=== PATIENT | female | born 1950 | race Caucasian/White ===

== ENCOUNTER → 2016-11-07 17:07 | Outpatient (CLI) | payer MEDICARE, BC ==
[2016-04-16 14:56] VITALS: BMI 35.2
[~2016-11-07 17:07] MED LIST: GLUCOPHAGE500 MG PO; LISINOPRIL5 MG PO
== END | disposition home or self-care (01) ==
LOC: D.MAMMO 15:45
DX: Z12.31 Encounter for screening mammogram for malignant neoplasm of breast (principal)

== ENCOUNTER 2017-01-17 09:28 | Emergency (ER) | payer MEDICARE, BC ==
[2016-04-16 14:56] VITALS: BMI 35.2
[2017-01-17 11:08] LABS: BASOPHILS 0.2 % (0-2); EOSINOPHILS 1.2 % (0-7); HEMATOCRIT 45.6 % (36.0-48.0); HEMOGLOBIN 15.3 g/dL (12-16); IMMATURE GRANULOCYTES 0.3 % (0-5); LYMPHOCYTES 17.6 % (15-50); MCH 30.8 pg (26.0-34.0); MCHC 33.6 g/dL (31.0-37.0); MCV 91.9 fL (80.0-100.0); MEAN PLATELET VOLUME 11.3 fL (7.4-10.4); NEUTROPHILS 73.7 % (40-80); PLATELET COUNT 251 10x3/uL (130-400); RBC 4.96 10x6/uL (4.00-5.40); RDW 13.1 % (11.5-14.5); WBC 14.5 10x3/uL (4.8-10.8)
[2017-01-17 11:25] LABS: CALCIUM 9.4 mg/dL (8.5-10.1); CARBON DIOXIDE 26.1 mmol/L (21.0-32.0); CREATININE - SERUM 0.9 mg/dL (0.6-1.3); POTASSIUM - SERUM 4.1 mmol/L (3.5-5.1)
== END 2017-01-17 12:20 | disposition home or self-care (01) ==
LOC: D.ER 09:28
PROVIDERS: Emergency Medicine
DX: K92.2 Gastrointestinal hemorrhage, unspecified (principal); E11.9 Type 2 diabetes mellitus without complications

== ENCOUNTER → 2017-11-13 16:58 | Outpatient (CLI) | payer MEDICARE, BC ==
[2016-04-16 14:56] VITALS: BMI 35.2
== END | disposition home or self-care (01) ==
LOC: D.MAMMO 15:45
DX: Z12.31 Encounter for screening mammogram for malignant neoplasm of breast (principal)

== ENCOUNTER 2019-06-04 08:00 | Outpatient (CLI) | payer MEDICARE, BC ==
[2016-04-16 14:56] VITALS: BMI 35.2
== END 2019-06-04 23:59 | disposition home or self-care (01) ==
LOC: D.MAMMO 08:00
PROVIDERS: ATTEND Family Medicine
DX: Z12.31 Encounter for screening mammogram for malignant neoplasm of breast (principal)